=== PATIENT | male | born 1980 | race Caucasian/White ===

== ENCOUNTER 2018-10-25 21:10 | Emergency (ER) | payer OTHER ==
[~2018-10-25] VITALS: Ht 180.3 cm; Wt 100.0 kg
[2018-10-25] MEDS ORDERED: ACET500T15 PO (21:16)
[2018-10-25] MEDS ORDERED: IPRATROPIUM 0.5MG/ALBUTEROL 2.5MG INH SOL UD 3ML (DUONEB)(J7620) NEB ONE (22:15)
[2018-10-25] MEDS ORDERED: MUCI600T31 PO (22:54)
[2018-10-25] MEDS ORDERED: PRED20TA PO (22:54)
[2018-10-25] MEDS ORDERED: VENTAER INH (22:54)
[2018-10-25] MEDS ORDERED: ALBUTEROL 90 MCG/ACT 8GM HFA INHALER INH ONE (23:00)
[2018-10-25] MEDS ORDERED: predniSONE 20 MG TAB PO ONE (23:00)
[2018-10-25] MEDS ORDERED: guaiFENesin ER 600 MG TAB PO STA (23:13)
[2018-10-25 23:28] VITALS: BP 135/78
--- NOTE | 2018-10-26 07:11 | REP ---
Clinical: Cough and shortness of breath . Comparison: None . Technique: PA and lateral. Findings: The mediastinum and cardiac silhouette are normal. The lung moncada are clear and without acute consolidation, effusion, or pneumothorax. The skeletal structures are intact and normal. Impression: 1. No acute cardiopulmonary process. Electronically Signed by Louie Barahona MD 10/26/2018 07:02 A
[2018-10-26] MEDS ORDERED: guaiFENesin ER 600 MG TAB PO SCH (09:00)
== END 2018-10-25 23:31 | disposition home or self-care (01) ==
LOC: M ED 21:10
DX: J40 Bronchitis, not specified as acute or chronic (principal)

== ENCOUNTER 2019-07-07 04:58 | Emergency (ER) | payer OTHER ==
[~2019-07-07] VITALS: Ht 180.3 cm; Wt 109.2 kg
[~2019-07-07 04:58] MED LIST: ACET500T15 PO; MUCI600T31 PO; PRED20TA PO; VENTAER INH
[2019-07-07 07:28] LABS: BASO % 0.1 % (0.0-1.0); EOS % 0.3 % (0.0-3.0); HEMATOCRIT 47.9 % (42.0-52.0); HEMOGLOBIN 16.4 g/dl (13.5-17.5); LYMPH # 0.6 10^3/uL (1.5-5.0); LYMPH % 6.7 % (24.0-44.0); MEAN CORPUSCULAR HEMOGLOBIN 29.2 pg (27.0-33.0); MEAN CORPUSCULAR HGB CONC 34.2 g/dl (32.0-36.5); MEAN CORPUSCULAR VOLUME 85.4 fl (80.0-96.0); MONO # 0.7 10^3/uL (0.0-0.8); MONO % 7.4 % (0.0-5.0); NEUTROPHILS # 7.9 10^3/uL (1.5-8.5); NEUTROPHILS % 85.2 % (36.0-66.0); PLATELET COUNT, AUTOMATED 180 10^3/uL (150-450); RED BLOOD COUNT 5.61 10^6/uL (4.30-6.10); WHITE BLOOD COUNT 9.2 10^3/uL (4.0-10.0)
[2019-07-07] MEDS ORDERED: ONDANSETRON 4MG/2ML VIAL (J2405) IV ONE (07:30)
[2019-07-07] MEDS ORDERED: NS 1,000 ML IV ONE ×2 (07:30→09:45)
[2019-07-07 07:52] LABS: ALBUMIN 3.3 GM/DL (3.2-5.2); ALT/SGPT 30 U/L (12-78); BILIRUBIN,DIRECT 0.3 MG/DL (0.0-0.2); BILIRUBIN,TOTAL 1.3 MG/DL (0.2-1.0); BLOOD UREA NITROGEN 17 MG/DL (7-18); CALCIUM LEVEL 8.2 MG/DL (8.5-10.1); CARBON DIOXIDE LEVEL 28 MEQ/L (21-32); CHLORIDE LEVEL 106 MEQ/L (98-107); CREATININE FOR GFR 1.07 MG/DL (0.70-1.30); GLOMERULAR FILTRATION RATE > 60.0 (>60); GLUCOSE, FASTING 107 MG/DL (70-100); LIPASE 40 U/L (73-393); POTASSIUM SERUM 3.7 MEQ/L (3.5-5.1); SODIUM LEVEL 139 MEQ/L (136-145); TOTAL PROTEIN 6.8 GM/DL (6.4-8.2)
[2019-07-07 07:55] LABS: INFLUENZA A AMPLIFICATION NEGATIVE (NEGATIVE); INFLUENZA B AMPLIFICATION NEGATIVE (NEGATIVE)
[2019-07-07 10:39] VITALS: BP 139/74
== END 2019-07-07 11:07 | disposition home or self-care (01) ==
LOC: M ED 04:58
DX: A08.4 Viral intestinal infection, unspecified (principal); Z20.828 Contact with and (suspected) exposure to other viral communicable diseases
CPT/HCPCS: 36415; 80048; 80076; 81001; 82150; 83690; 85025; 87502; 96361; 96374; 99284; J2405

== ENCOUNTER 2020-02-24 19:29 | Emergency (ER) | payer OTHER ==
[~2020-02-24] VITALS: Ht 180.3 cm; Wt 101.8 kg
--- NOTE | 2020-02-24 21:17 | REPVR ---
PROCEDURE INFORMATION: Exam: US Duplex Left Lower Extremity Veins, Limited Exam date and time: 02/24/2020 8:52 PM Age: 39 years old Clinical indication: Pain; Leg, lower; Left; Additional info: Rule out dvt TECHNIQUE: Imaging protocol: Real-time Duplex ultrasound of the Left Lower Extremity with 2-D irvin scale, color Doppler flow and spectral waveform analysis with image documentation. Limited exam focused on the left lower extremity veins. COMPARISON: No relevant prior studies available. FINDINGS: Left deep veins: Unremarkable. The common femoral, femoral and popliteal veins are patent without thrombus. Normal compressibility, augmentation response and Doppler waveforms. Left superficial veins: Unremarkable. Saphenofemoral junction is patent without thrombus. Soft tissues: Unremarkable. IMPRESSION: No sonographic evidence of deep vein thrombosis. Electronically signed by: Vito Edwards On 02/24/2020 21:16:25 PM
[2020-02-24 21:53] VITALS: BP 137/82
== END 2020-02-24 21:54 | disposition home or self-care (01) ==
LOC: M ED 19:29
DX: S86.212A Strain of muscle(s) and tendon(s) of anterior muscle group at lower leg level, left leg, initial encounter (principal); X50.1XXA Overexertion from prolonged static or awkward postures, initial encounter; Y92.89 Other specified places as the place of occurrence of the external cause; Y93.02 Activity, running; Y99.1 Military activity

== ENCOUNTER 2022-10-26 08:04 | Day surgery (SDC) | payer OTHER ==
[~2022-10-26] VITALS: Ht 172.7 cm; Wt 108.9 kg
[~2022-10-26 08:04] MED LIST changes: +ALLE60TA69 PO; +SERT-141 PO; +SERT50TA29 PO; +TRAZ-252 PO; +ceFAZolin SOD 2 GM in IV 1 EA IV ONE
[2022-10-26] MEDS ORDERED: LIDOCAINE 1% SDV 30ML VIAL As Ordered ONE (08:19)
[2022-10-26] MEDS ORDERED: LIDOCAINE 1% SDV 5ML VIAL SC PRN (08:25)
[2022-10-26] MEDS ORDERED: LR 1,000 ML IV SCH (08:25)
[2022-10-26] MEDS ORDERED: KETOROLAC 60MG 2ML VIAL As Ordered ONE (08:41)
[2022-10-26] MEDS ORDERED: propofoL 200 MG/20 ML VIAL As Ordered ONE (08:41)
[2022-10-26] MEDS ORDERED: ONDANSETRON 4MG 2ML VIAL As Ordered ONE (08:41)
[2022-10-26] MEDS ORDERED: LIDOCAINE 2% 100MG/5ML SDV (FOR ANES.) As Ordered ONE (08:41)
[2022-10-26] MEDS ORDERED: MIDAZOLAM INJ 2MG/2ML VIAL As Ordered ONE (08:42)
[2022-10-26] MEDS ORDERED: fentaNYL 100 MCG/2 ML INJECTION As Ordered ONE (08:42)
[2022-10-26] MEDS ORDERED: HYDR-3713 PO (10:59)
[2022-10-26 11:15] VITALS: BP 135/78; TEMP 97.8; O2SAT 92
== END 2022-10-26 12:10 | disposition home or self-care (01) ==
LOC: M SDC 08:04
PROVIDERS: ATTEND Podiatrist Foot & Ankle Surgery
DX: M21.612 Bunion of left foot (principal); M20.12 Hallux valgus (acquired), left foot; T84.84XA Pain due to internal orthopedic prosthetic devices, implants and grafts, initial encounter; Y72.2 Prosthetic and other implants, materials and accessory otorhinolaryngological devices associated with adverse incidents; F32.A Depression, unspecified; F43.10 Post-traumatic stress disorder, unspecified; J30.2 Other seasonal allergic rhinitis; R06.2 Wheezing; Z79.899 Other long term (current) drug therapy
CPT/HCPCS: 20680; 28296; C1713; C1762; J0690; J1100; J1885; J2250; J2405; J3010; S0020